=== PATIENT | female | born 1950 | race Caucasian/White ===

== ENCOUNTER 2021-07-13 12:18 | Observation (INO) | payer MEDICARE, SELFPAY ==
[2021-07-13] VITALS (10 sets, daily range): BP systolic 143–153; BP diastolic 60–83; PULSE 56–76; RESP 17–18; TEMP 36.6–37.3; O2SAT 87–96; BMI 23.3
--- NOTE | ~2021-07-13 | XR_ITS ---
EXAMINATION: XR CHEST CLINICAL INFORMATION: SOB COMPARISON: None TECHNIQUE: Frontal view of the chest was obtained. FINDINGS: The lungs are well-expanded with prominent pulmonary vascular markings with trace curly lines in the left lung base CP angle suspicious of mild congestion. Heart size and perivascular is normal. No gross bony abnormality seen. XR/XR chest 1V IMPRESSION: Suspect mild pulmonary vascular congestion.
--- NOTE | 2021-07-13 12:31 | PC.NURSE ---
patient a&ox3, non home o2 dependent, 2L O2 via ems, cardiac exercise physiologist applied, vss, pt awaiting provider, will continue to monitor.
--- NOTE | 2021-07-13 12:45 | ECG_ITS ---
Test Reason : DYSPENA Blood Pressure : / mmHG Vent. Rate : 061 BPM Atrial Rate : 061 BPM P-R Int : 174 ms QRS Dur : 090 ms QT Int : 426 ms P-R-T Axes : 038 009 008 degrees QTc Int : 428 ms Sinus rhythm with sinus arrhythmia with occasional Premature ventricular complexes Cannot rule out Anterior infarct , age undetermined - could be related to lead placement Abnormal ECG No previous ECGs available Referred By: Briana Dickey Electronically Signed By:ALEJANDRA DORADO
--- NOTE | 2021-07-13 12:47 | ED.SOB ---
HPI - SOB/Dyspnea General Chief Complaint: Dyspnea Stated Complaint: SOB,PROD COUGH,RECENT COVID NEG RESULT PER EMS Time Seen by Provider: 07/13/21 12:44 Source: patient and EMS Mode of arrival: ambulatory Limitations: no limitations History of Present Illness HPI Narrative: 70-year-old female came in for evaluation of shortness of breath, productive cough. Symptoms started few days ago with productive cough with yellow sputum, with increased wheezing, chest tightness. Patient did not take vaccination for COVID but declined any exposure to sick contact or recent travel. Patient declined chest pain with her symptoms, no fever chills. Related Data Previous Rx's Medication Instructions Recorded albuterol sulfate 90 mcg/actuation 1 inh INHALATION QID PRN #8.5 g 07/13/21 aerosol inhaler (ProAir HFA) azithromycin 250 mg tablet See Rx Instructions .ROUTE 07/13/21 (Zithromax Z-Josh) .COMPLEX #6 tab prednisone 5 mg tablet 5 mg PO BID #10 tab 07/13/21 Allergies Allergy/AdvReac Type Severity Reaction Status Date / Time No Known Allergies Allergy Verified 07/13/21 12:26 Review of Systems Review of Systems: All other systems are reviewed and are negative Constitutional: Reports as per HPI and Reports no additional constitutional complaints Eyes: Reports as per HPI and Reports no additional eye complaints Reports system reviewed and no additional complaints, except as documented Cardiovascular: Reports as per HPI and Reports no additional cardiovascular complaints Respiratory: Reports as per HPI and Reports no additional respiratory complaints Gastrointestinal: Reports as per HPI and Reports no additional gastrointestinal complaints Genitourinary: Reports no additional female genitourinary complaints Musculoskeletal: Reports no additional musculoskeletal complaints Skin/Breast: Reports system reviewed and no additional complaints, except as docu Psychiatric: Reports no additional psychiatric complaints Endocrine: Reports no additional endocrine complaints Hematologic/Lymphatic: Reports no additional hematologic/lymphatic complaints Allergic/Immunologic: Reports no additional allergic/immunologic complaints Reports system reviewed and no additional complaints, except as documented and Reports Abnormal speech present [facility] Past Medical History Medical History (Updated 07/13/21 @ 15:19 by Briana Dickey MD) Asthma Heart disease Social History Social History Alcohol intake: current Alcohol intake frequency: holidays/special occasions only Alcohol type: beer Patient Tobacco Use Status: Never used Tobacco Use of substances other than those prescribed or required for medical reasons: No Advance Directives: Yes Advance Directives Information Provided: No Advance Directives on File: No Physical Exam Vital Signs: Vital Signs: Last Vital Signs Temp 99.2 F 07/13/21 14:30 Pulse 56 07/13/21 14:30 Resp 17 07/13/21 14:30 BP 143/72 H 07/13/21 14:30 Pulse Ox 95 07/13/21 14:30 Oxygen Flow Rate 2 07/13/21 12:26 BMI result Body Mass Index 23.3 Vital signs have been reviewed as appeared to be correct. Blood pressure normal. Heart rate normal. Respiration rate normal. Temperature normal. Oxygen saturation normal. Appearance: Alert. Oriented X3. No acute distress. Head: Normal external exam. Normocephalic. Atraumatic. No Lenz signs noted. No raccoon eyes noted Eyes: PERRLA. EOMI. Conjunctiva and sclera normal. Eyelids normal. ENT: TM's Normal. Pharynx normal. Uvula midline. Moist mucous membranes. No trismus noted. No drooling noted. No muffled voice noted. Neck: Normal inspection. Neck supple. FROM. No adenopathy. Thyroid Normal. No meningeal signs. No neck mass noted. CVS: Normal heart rate and rhythm. Heart sound normal. No murmurs noted. Pulses normal throughout. Respiratory: No respiratory distress. Painless inspiration. Breath sounds normal. Diffuse expiratory wheezing with prolonged with expiration. Chest nontender. No accessory muscle usage noted or decreased air movement noted. Abdomen: Soft and nontender. Bowel sounds normal in all 4 quadrants. No distention noted. No organomegaly noted. No visible injury noted. Back: No CVA tenderness. Full range of motion noted. Skin: Skin warm and dry. Normal skin color. Normal skin turgor. No rashes/lesions/lacerations noted. Extremities: No lower extremity edema. Extremities exhibit normal range of motion. Extremities nontender. Neuro: Oriented X 3. Cranial nerve exam: II-XII are grossly intact No motor deficit. No sensory deficit. Reflexes normal. Course Course Course Narrative: Assessment and plan. 70-year-old female history of bronchial asthma, came in for persistent cough with yellow sputum, patient is positive for RSV, elevated troponin, unremarkable EKG. 1. Start the patient on Z-Josh/bronchodilator/prednisone for 5 days. 2. Repeat troponin in 3 hours if there is no delta change patient can be discharged, signed out to Dr. Broussard to check 2nd troponin. MDM - SOB/Dyspnea Lab Data Attestation: I reviewed the patient's lab results. Result diagrams: 07/13/21 13:17 07/13/21 13:17 Labs: Lab Results 07/13/21 07/13/21 07/13/21 Range/Units 13:17 13:17 13:17 WBC 3.9 L (4.8-10.8) X10*3/uL RBC 3.33 L (4.20-5.50) X10*6/uL Hgb 10.6 L (12.0-16.0) g/dl Hct 31.6 L (37.0-47.0) % MCV 94.9 (80.0-98.0) fL MCH 31.8 (27.0-33.0) pg MCHC 33.5 (31.0-35.0) g/dl RDW 12.5 (11.0-16.0) % Plt Count 171 (160-400) X10*3/uL MPV 10.2 (9.4-12.3) fL Immature Gran % (Auto) 0.0 (0.0-0.4) % Neut % (Auto) 49.5 (45-73) % Lymph % (Auto) 37.0 (20-40) % [place] % (Auto) 7.8 (2-11) % Eos % (Auto) 4.9 H (0-4) % Baso % (Auto) 0.8 (0-2) % Lymph # (Auto) 1.4 (1.2-4.9) X10*3/uL [place] # (Auto) 0.3 (0.1-1.2) X10*3/uL Eos # (Auto) 0.2 (0.0-0.4) X10*3/uL Baso # (Auto) 0.0 (0.0-0.2) X10*3/uL Abs Immat Gran (auto) 0.00 (0.00-0.03) X10*3/uL Absolute Neuts (auto) 1.9 L (2.0-8.3) x10*3/uL Absolute Nucleated RBC 0.000 (0.0-0.012) X10*3/uL Nucleated RBC % (auto) 0.0 (0.0-0.2) /100WBC Sodium 140 (135-145) mmol/L Potassium 4.0 (3.3-5.1) mmol/L Chloride 109 H (96-108) mmol/L Carbon Dioxide 24 (22-29) mmol/L Anion Gap 11 L (12-20) BUN 12 (9-16) mg/dL Creatinine 0.73 (0.5-1.4) mg/dL Estim Creat Clear Calc 66.1 Estimated GFR > 60 Random Glucose 94 (60-115) mg/dL Calcium 8.8 (8.4-10.2) mg/dL Total Bilirubin 0.4 (0.0-1.0) mg/dL Direct Bilirubin 0.2 (0.0-0.5) mg/dL AST 20 (5-31) U/L ALT 14 (0-31) U/L Alkaline Phosphatase 54 (39-117) U/L Troponin I High Sens 31.5 H (<3.5-17.0) ng/L B-Natriuretic Peptide (<100) pg/mL Total Protein 5.8 L (6.5-8.0) g/dL Albumin 3.7 (3.5-5.0) g/dL Lipase 17 (8-78) U/L Influenza Type A (PCR) (Negative) Influenza Type B (PCR) (Negative) RSV RNA Qual (PCR) (Negative) SARS-CoV-2 RNA (RT-PCR) (Negative) 07/13/21 07/13/21 Range/Units 13:17 13:17 WBC (4.8-10.8) X10*3/uL RBC (4.20-5.50) X10*6/uL Hgb (12.0-16.0) g/dl Hct (37.0-47.0) % MCV (80.0-98.0) fL MCH (27.0-33.0) pg MCHC (31.0-35.0) g/dl RDW (11.0-16.0) % Plt Count (160-400) X10*3/uL MPV (9.4-12.3) fL Immature Gran % (Auto) (0.0-0.4) % Neut % (Auto) (45-73) % Lymph % (Auto) (20-40) % [place] % (Auto) (2-11) % Eos % (Auto) (0-4) % Baso % (Auto) (0-2) % Lymph # (Auto) (1.2-4.9) X10*3/uL [place] # (Auto) (0.1-1.2) X10*3/uL Eos # (Auto) (0.0-0.4) X10*3/uL Baso # (Auto) (0.0-0.2) X10*3/uL Abs Immat Gran (auto) (0.00-0.03) X10*3/uL Absolute Neuts (auto) (2.0-8.3) x10*3/uL Absolute Nucleated RBC (0.0-0.012) X10*3/uL Nucleated RBC % (auto) (0.0-0.2) /100WBC Sodium (135-145) mmol/L Potassium (3.3-5.1) mmol/L Chloride (96-108) mmol/L Carbon Dioxide (22-29) mmol/L Anion Gap (12-20) BUN (9-16) mg/dL Creatinine (0.5-1.4) mg/dL Estim Creat Clear Calc Estimated GFR Random Glucose (60-115) mg/dL Calcium (8.4-10.2) mg/dL Total Bilirubin (0.0-1.0) mg/dL Direct Bilirubin (0.0-0.5) mg/dL AST (5-31) U/L ALT (0-31) U/L Alkaline Phosphatase (39-117) U/L Troponin I High Sens (<3.5-17.0) ng/L B-Natriuretic Peptide 105 H (<100) pg/mL Total Protein (6.5-8.0) g/dL Albumin (3.5-5.0) g/dL Lipase (8-78) U/L Influenza Type A (PCR) NEGATIVE (Negative) Influenza Type B (PCR) NEGATIVE (Negative) RSV RNA Qual (PCR) POSITIVE A (Negative) SARS-CoV-2 RNA (RT-PCR) NEGATIVE (Negative) Imaging Data Chest x-ray: Radiologist's impression: Suspect mild pulmonary vascular congestion. ? ECG Data Attestation: I personally reviewed and interpreted this ECG as follows: Interpretation: Normal sinus rhythm at 61 beats per minutes, occasional PVCs, nonspecific ST-T changes. Discharge Plan Discharge Clinical Impression: Asthma with exacerbation, Respiratory syncytial virus (RSV) Patient Disposition: Still a Patient Instructions: Respiratory Syncytial Virus (ED) Prescriptions: New prednisone 5 mg tablet 5 mg PO BID Qty: 10 RF: 0 albuterol sulfate [ProAir HFA] 90 mcg/actuation HFA aerosol inhaler 1 inh inhalation QID PRN (Reason: shortness of breath or wheezing) Qty: 8.5 RF: 0 azithromycin [Zithromax Z-Josh] 250 mg tablet See Rx Instructions .ROUTE .COMPLEX Qty: 6 RF: 0 Referrals: Luly Cruz MD [Primary Care Provider] - 2 days
[2021-07-13 13:29] LABS: MANUAL DIFF FLAG NO
[2021-07-13 13:30] LABS: Basophils Percent Auto 0.8 % (0-2); Eosinophils Absolute Auto 0.2 X10*3/uL (0.0-0.4); Eosinophils Percent Auto 4.9 % (0-4); Hematocrit 31.6 % (37.0-47.0); Hemoglobin 10.6 g/dl (12.0-16.0); Lymphocytes Absolute Auto 1.4 X10*3/uL (1.2-4.9); Mean Corpuscular HGB Conc 33.5 g/dl (31.0-35.0); Mean Corpuscular Hemoglobin 31.8 pg (27.0-33.0); Mean Corpuscular Volume 94.9 fL (80.0-98.0); Mean Platelet Volume 10.2 fL (9.4-12.3); Monocytes Absolute Auto 0.3 X10*3/uL (0.1-1.2); Monocytes Percent Auto 7.8 % (2-11); Neutrophils Absolute Auto 1.9 x10*3/uL (2.0-8.3); Neutrophils Percent Auto 49.5 % (45-73); Platelet Count 171 X10*3/uL (160-400); Red Blood Count 3.33 X10*6/uL (4.20-5.50); Red Cell Distribution Width 12.5 % (11.0-16.0); White Blood Count 3.9 X10*3/uL (4.8-10.8)
[2021-07-13] MEDS: guaiFEN/Codeine SF 200/20/10ML 10 ML LIQUID PO (13:37)
--- NOTE | 2021-07-13 13:38 | PC.NURSE ---
labs drawn, pt medicated per order
[2021-07-13 13:47] LABS: Alanine Aminotransferase 14 U/L (0-31); Albumin Level 3.7 g/dL (3.5-5.0); Alkaline Phosphatase 54 U/L (39-117); Anion Gap 11 (12-20); Aspartate Amino Transferase 20 U/L (5-31); Bilirubin Direct 0.2 mg/dL (0.0-0.5); Bilirubin Total 0.4 mg/dL (0.0-1.0); Blood Urea Nitrogen 12 mg/dL (9-16); Calcium 8.8 mg/dL (8.4-10.2); Carbon Dioxide 24 mmol/L (22-29); Chloride 109 mmol/L (96-108); Creatinine Clr Calc Pharmacy 66.1; Estimated Glomerular Filt Rate > 60; Glucose Random 94 mg/dL (60-115); Lipase 17 U/L (8-78); Sodium 140 mmol/L (135-145); Total Protein 5.8 g/dL (6.5-8.0)
[2021-07-13 13:51] LABS: B Type Natriuretic Peptide 105 pg/mL (<100)
[2021-07-13 13:52] LABS: Troponin-I High Sensitivity 31.5 ng/L (<3.5-17.0)
[2021-07-13 14:44] LABS: Influenza A PCR NEGATIVE (Negative); Influenza B PCR NEGATIVE (Negative); Resp Syncy Virus RNA Qual PCR POSITIVE (Negative); SARS COV2 PCR INHOUSE NEGATIVE (Negative)
[2021-07-13] MEDS: methylPREDNISolone Sod Succ 125 MG/2 ML VIAL IVPUSH (14:48)
--- NOTE | 2021-07-13 14:49 | PC.NURSE ---
patient a&ox3, pt was unable to swallow po meds, provider notified and ivp medication was ordered, pt was then medicated per order, vss, family at bedside, will continue to monitor.
[2021-07-13] MEDS: Albuterol/Iprat 2.5/0.5MG 3 ML AMPUL.NEB INHALE ×3 (15:09→22:44)
[2021-07-13] MEDS: Albuterol Sulfate (0.083%) 2.5 MG/3 ML VIAL.NEB 5 MG INHALE (15:09)
--- NOTE | 2021-07-13 16:31 | PC.NURSE ---
patient a&ox3, no c/o pain or discomfort, pt sinus raine with pvcs on division leader- vitals otherwise stable, will continue to monitor.
[2021-07-13 17:19] LABS: Troponin-I High Sensitivity 53.4 ng/L (<3.5-17.0)
--- NOTE | 2021-07-13 18:13 | PC.NURSE ---
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
--- NOTE | 2021-07-13 18:35 | PC.NURSE ---
per provider request, patient was taken off O2 NC, patients O2 sat decreased to 87% without ambulation/movement, provider was notified, O2 reapplied and patient recovered to mid 90s, repeat ekg performed, will continue to monitor.
--- NOTE | 2021-07-13 18:37 | ECG_ITS ---
Test Reason : REPEAT Blood Pressure : / mmHG Vent. Rate : 059 BPM Atrial Rate : 059 BPM P-R Int : 170 ms QRS Dur : 088 ms QT Int : 456 ms P-R-T Axes : 020 -08 -09 degrees QTc Int : 451 ms Sinus bradycardia Nonspecific ST and T wave abnormality Abnormal ECG When compared with ECG of 13-JUL-2021 13:06, Premature ventricular complexes are no longer Present Referred By: Dawson Duron Electronically Signed By:ALEJANDRA DORADO
--- NOTE | 2021-07-13 18:49 | PHA.MEDREC ---
Pharmacy Consult ? Medication Reconciliation Pharmacy has completed the medication reconciliation. Patient was sent from an urgent care where she was prescribed azithromycin, prednisone, and proair. The patient only consistently fills carvedilol and combivent.
--- NOTE | 2021-07-13 18:56 | P.HPHOSP_ITS ---
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 She came to the hospital because of having your discharge and also short of b reath. Patient having to 3Day is history of shortness of breath and wheezing, yellow sputum, also notice your discharge from the left side yesterday night. She denies any runny nose or body aches or any sick contacts at home. In addition as per ED patient's saturation dropped to 87% upon walking. Denies any new complaint of chest pain or abdominal pain or fever or chills or nausea or vomiting Denies any cough Denies any weakness or numbness. Review of Systems Review of Systems: As above. Yes all other systems are reviewed and are negative [facility] Medical History Asthma Heart disease Pertinent family history: sister has copd. Social History Alcohol intake: current Alcohol intake frequency: holidays/special occasions only Alcohol type: beer Patient Tobacco Use Status: Never used Tobacco Use of substances other than those prescribed or required for medical reasons: No Advance Directives: Yes Advance Directives Information Provided: No Advance Directives on File: No Meds Allergies Allergy/AdvReac Type Severity Reaction Status Date / Time No Known Allergies Allergy Verified 07/13/21 12:26 Active Medications: Current Medications Albuterol/Ipratropium (Albuterol/Iprat 2.5/0.5mg 3 Ml Ampul.Neb) 3 ml INHALE Q4H [facility] Albuterol/Ipratropium (Albuterol/Iprat 2.5/0.5mg 3 Ml Ampul.Neb) 3 ml INHALE Q3H PRN PRN Reason: Shortness of Breath Aspirin (Aspirin Enteric Coated 81 Mg Tablet.Dr) 162 mg PO DAILY [facility] Guaifenesin (Guaifenesin 100 Mg/5 Ml Liquid) 5 ml PO Q6H [facility] Ceftriaxone Sodium 1 gm/ (Sodium Chloride) 50 mls @ 100 mls/hr IV ONCE ONE Stop: 07/13/21 19:19 Loratadine (Loratadine 10 Mg Tablet) 10 mg PO DAILY [facility] Methylprednisolone Sodium Succinate (Methylprednisolone Sod Succ 40 Mg/Ml Vial) 40 mg IVPUSH BID [facility] Pharmacy Consult (Consult Rx Perform Med Rec) 1 each MISCELLANE ONCE PRN PRN Reason: Consult order Sodium Chloride (0.9 % Sodium Chloride Flush 3 Ml Syringe) 3 ml IVFLUSH QSHIFT [facility] Home Medications Medication Instructions Recorded Confirmed Last Taken Type carvedilol 3.125 mg tablet 1 tab PO BID 07/13/21 07/13/21 Unknown History ipratropium 20 mcg-albuterol 100 1 puff INHALATION QID 07/13/21 07/13/21 Unknown History mcg/actuation mist for inhalation (Combivent Respimat) Physical Exam Vital Signs and Narrative: Vital Signs: Last Vital Signs Temp 98.1 F 07/13/21 18:00 Pulse 62 07/13/21 18:00 Resp 18 07/13/21 18:00 BP 147/70 H 07/13/21 18:00 Pulse Ox 96 07/13/21 18:34 Oxygen Flow Rate 2 07/13/21 12:26 BMI result Body Mass Index 23.3 physical exam : Appearance: Alert.? Oriented X3.? not in distress.? Eyes: Pupils equal, round and reactive to light.? Sclera nonicteric.? ENT: Pharynx normal.? Moist mucous membranes. ear: right ear: has vax -not clear visible ear drum left ear: eardrum perforation has erythema around the remaining eardrum. No visible discharge. cvs: rrr, [id number] , no murmur res: clear to auscultation ,no rhonchii or wheezing abd: no rebound or guarding ,nt, bs present. ext pulses present , no cyanosis ,Gait well balanced well coordinated. neuro: axo3 , nonfocal. Results Labs CBC and Chem 7: 07/13/21 13:17 07/13/21 13:17 Labs: Laboratory Results - last 24 hr 07/13/21 07/13/21 07/13/21 13:17 13:17 13:17 MCV 94.9 MCH 31.8 MCHC 33.5 RDW 12.5 Plt Count 171 MPV 10.2 Immature Gran % (Auto) 0.0 Neut % (Auto) 49.5 Lymph % (Auto) 37.0 [place] % (Auto) 7.8 Eos % (Auto) 4.9 H Baso % (Auto) 0.8 Lymph # (Auto) 1.4 [place] # (Auto) 0.3 Eos # (Auto) 0.2 Baso # (Auto) 0.0 Abs Immat Gran (auto) 0.00 Absolute Neuts (auto) 1.9 L Absolute Nucleated RBC 0.000 Nucleated RBC % (auto) 0.0 Anion Gap 11 L Estim Creat Clear Calc 66.1 Estimated GFR > 60 Random Glucose 94 Calcium 8.8 Total Bilirubin 0.4 Direct Bilirubin 0.2 AST 20 ALT 14 Alkaline Phosphatase 54 Troponin I High Sens 31.5 H B-Natriuretic Peptide Total Protein 5.8 L Albumin 3.7 Lipase 17 Influenza Type A (PCR) Influenza Type B (PCR) RSV RNA Qual (PCR) SARS-CoV-2 RNA (RT-PCR) 07/13/21 07/13/21 07/13/21 13:17 13:17 16:46 MCV MCH MCHC RDW Plt Count MPV Immature Gran % (Auto) Neut % (Auto) Lymph % (Auto) [place] % (Auto) Eos % (Auto) Baso % (Auto) Lymph # (Auto) [place] # (Auto) Eos # (Auto) Baso # (Auto) Abs Immat Gran (auto) Absolute Neuts (auto) Absolute Nucleated RBC Nucleated RBC % (auto) Anion Gap Estim Creat Clear Calc Estimated GFR Random Glucose Calcium Total Bilirubin Direct Bilirubin AST ALT Alkaline Phosphatase Troponin I High Sens 53.4 H* D B-Natriuretic Peptide 105 H Total Protein Albumin Lipase Influenza Type A (PCR) NEGATIVE Influenza Type B (PCR) NEGATIVE RSV RNA Qual (PCR) POSITIVE A SARS-CoV-2 RNA (RT-PCR) NEGATIVE Imaging Radiologist's Impressions: Impressions Chest X-Ray 07/13/21 13:42 IMPRESSION: Suspect mild pulmonary vascular congestion. Assessment and Plan (1) Asthma with exacerbation: Status: Acute (2) Respiratory syncytial virus (RSV): Status: Acute (3) Hypoxia: Status: Acute (4) Otitis media: Status: Acute 1. acute hypoxemic respiratory failure sec to asthma excerebation/rsv: continue nebs, steroids, oxygen 2. left ear drum perforation/otitis: will start patient on ceftriaxone. 3. DVT prophylaxis with subQ heparin. Med reconciliation still pending. Quality Stroke Does the patient have a stroke diagnosis?: No VTE Prior VTE?: No VTE Risk Level:: Medical - moderate - high VTE Device Contraindication: N/A - Device Ordered VTE Drug Contraindication: N/A - Med Ordered
[2021-07-13] MEDS: Aspirin Enteric Coated 81 MG TABLET.DR 162 MG PO (19:05)
[2021-07-13] MEDS: Loratadine 10 MG TABLET PO (19:06)
[2021-07-13] MEDS: guaiFENesin 100 MG/5 ML LIQUID PO (19:07)
[2021-07-13] MEDS: methylPREDNISolone Sod Succ 40 MG/ML VIAL IVPUSH (19:09)
[2021-07-13] MEDS: cefTRIAXone sodium 1 GM in 0.9 % Sodium Chloride 50 ML IV (19:12)
[2021-07-13 19:15] LABS: Procalcitonin 0.18 ng/mL
--- NOTE | 2021-07-13 22:58 | MHC.CM.PN ---
CM met with pt admitted to observation with a bed assignment pending. A&Ox3Shabbir CODY reviewed and signed per protocol 07/13/2021@2225. No HCP on file. HCP reviewed, completed and signed per protocol. Copies given and uploaded into [employer] and [facility]. HCP/daughter Maribel Baumann ([phone]). Pt lives with daughter. Uses no DME or services. Is independent. Pt is not vaccinated against Covid 19. D/C plan is home without services. Daughter will provide transportation home. CM to follow for d/c needs.
[2021-07-14] VITALS (14 sets, daily range): BP systolic 112–151; BP diastolic 60–93; PULSE 60–114; RESP 14–22; TEMP 36.7–37.1; O2SAT 94–98
[2021-07-14] MEDS: guaiFENesin 100 MG/5 ML LIQUID PO ×4 (00:50→18:01)
[2021-07-14] MEDS: Albuterol/Iprat 2.5/0.5MG 3 ML AMPUL.NEB INHALE ×5 (03:59→20:44)
--- NOTE | 2021-07-14 07:30 | CA_ITS ---
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 The calculated ejection fraction is 53% by biplane method. - E/E prime ratio is >15, consistent with elevated filling pressures. Evidence suggests grade I (mild) diastolic dysfunction. - The basal inferior and mid inferior segments are hypokinetic. - There is mild mitral valve regurgitation. Findings Left Ventricle Normal left ventricular cavity size. There is mildly increased left ventricular wall thickness. The left ventricular systolic function is low normal. The calculated ejection fraction is 53% by biplane method. There is no evidence of regional wall motion abnormalities. E/E prime ratio is >15, consistent with elevated filling pressures. Evidence suggests grade I (mild) diastolic dysfunction. Wall Motion Rest Echo Findings The basal inferior and mid inferior segments are hypokinetic. Right Ventricle Normal right ventricular cavity size and systolic function. Atria The left atrium is moderately dilated. The right atrium is normal in size. Aortic Valve There is a normal trileaflet aortic valve. There is no aortic valve stenosis. There is no aortic valve regurgitation. Mitral Valve There is mild anterior and posterior mitral leaflet thickening. There is mild mitral annular calcification. There is mild mitral valve regurgitation. There is no mitral valve stenosis. Pulmonic Valve The pulmonic valve was not well visualized. Tricuspid Valve There is trace tricuspid valve regurgitation. The pulmonary artery systolic pressure is normal. Great Vessels The aortic annulus, sinuses of valsalva, and asc aorta are normal in size. Venous The inferior vena cava is normal in size and collapses greater than 50% with inspiration. Pericardium/Pleural There is no evidence of pericardial effusion. Prior Study Comparison Changes noted compared to prior study dated: 01/13/2001. see comments on wall motion; mitral regurgitation improved from before. Measurements 2D Linear Measurements IVSd: 1.09 0.6-0.9/0.6-1.0 cm LVIDd: 5.41 3.9-5.3/4.2-5.9 cm LVIDd Index: 3.11 2.4-3.2/2.2-3.1 cm/m2 LVIDs: 3.71 2.0-3.6 cm LVPWd: 1.03 0.7-1.1 cm Ao Root: 2.90 2.1-3.5 cm LA Diam: 3.90 2.7-3.8/3.0-4.0 cm LAIDs Index: 2.24 1.5-2.3 cm/m2 LV Mass: 279.36 67-162/88-224 g LV Mass Index: 160.55 43-95/49-115 g/m2 LVOT Diam: 2.10 3.0+(-)1.3 cm 2D Systolic Function EF 4C: 54.40 >55% EF 2C: 53.90 >55% EF BiP: 53.30 >55% Mitral Valve MV VTI: 0.32 MV Pk Harrison: 1.29 MV Mn Harrison: 0.66 MV Pk Grad: 7.00 MV Mn Grad: 2.00 MV Pk E: 0.77 MV PK A: 1.23 MV Decel Time: 131.00 E/A: 0.60 E'Lateral: 9.25 E'Medial: 3.92 E/E' Med: 19.70 E/E' Lat: 8.30 PHT: 38.00 MVA PHT: 5.79 MVA Continuity: 2.60 Decel [place]: 5.89 Aortic Valve AoV Pk Harrison: 1.59 AoV Mn Harrison: 1.02 AoV VTI: 0.35 AoV Pk Grad: 10.00 Aov Mn Grad: 5.00 DAVID Cont.VTI: 2.34 LVOT LVOT Pk Harrison: 1.01 LVOT Mn Harrsion: 0.71 LVOT VTI: 0.24 LVOT Pk Grad: 4.00 LVOT Mn Grad: 2.00 LVOT Diam: 2.10 LVOT Area: 3.46 Diastolic Function MV Pk E: 0.77 MV Pk A: 1.23 E/A: 0.60 E'Medial: 3.92 E/E' Med: 19.70 E' Laterial: 9.25 E/E' Lat: 8.30 Right Ventricle TAPSE (mm): 33.00 TVS' Harrison: 12.00 Tricuspid Valve TR Pk Harrison: 2.27 TR Pk Grad: 21.00 RA Press: 3.00 RVSP: 24.00 Great Vessels Aorta Ao Root-2D: 2.90 2.0-3.7 cm Ao Asc: 3.00 2.1-3.4 cm Pulmonary Valve PV Pk Harrison: 1.18 Peak PV Grad: 6.00 Updated in Other Vendor System with Status of Final Rodrigo Fernandes MD electronically signed on 07/14/2021 1:37:09 PM with status of Final
--- NOTE | 2021-07-14 07:57 | HO.PM.IMPN ---
Subjective Subjective Date of Service: 07/15/21 Interval History: asthma excerebation, left ottis media with ear drum peroforation Review of Systems shortness of breath seems to be improving , does not have ear pain or any discharge overnight. Physical Exam Vital Signs: Vital Signs: Last Vital Signs Temp 98.8 F 07/14/21 07:11 Pulse 78 07/14/21 07:49 Resp 19 07/14/21 07:13 BP 151/93 H 07/14/21 07:13 Pulse Ox 98 07/14/21 07:13 Oxygen Flow Rate 2 07/13/21 12:26 BMI result Body Mass Index 23.3 Appearance: Alert.? Oriented X3.? not in distress.? ear:right ear: has vax -not clear visible ear drum left ear: eardrum perforation has erythema around the remaining eardrum. ? No visible discharge. cvs: rrr, [id number] , no murmur res: clear to auscultation ,no rhonchii or wheezing abd: no rebound or guarding ,nt, bs present. ext pulses present , no cyanosis ,Gait well balanced well coordinated. neuro: axo3 , nonfocal. Objective Data Active Medications Albuterol/Ipratropium (Albuterol/Iprat 2.5/0.5mg 3 Ml Ampul.Neb) 3 ml INHALE Q4H [facility] Last Admin: 07/14/21 07:48 Dose: 3 ml Documented by: MELITON Albuterol/Ipratropium (Albuterol/Iprat 2.5/0.5mg 3 Ml Ampul.Neb) 3 ml INHALE Q3H PRN PRN Reason: Shortness of Breath Aspirin (Aspirin Enteric Coated 81 Mg Tablet.) 162 mg PO DAILY [facility] Last Admin: 07/13/21 19:05 Dose: 162 mg Documented by: VANDANA Guaifenesin (Guaifenesin 100 Mg/5 Ml Liquid) 5 ml PO Q6H [facility] Last Admin: 07/14/21 00:50 Dose: 5 ml Documented by: VANDANA Ceftriaxone Sodium 1 gm/ (Sodium Chloride) 50 mls @ 100 mls/hr IV Q24H [facility] Loratadine (Loratadine 10 Mg Tablet) 10 mg PO DAILY [facility] Last Admin: 12/02/21 19:06 Dose: 10 mg Documented by: VANDANA Methylprednisolone Sodium Succinate (Methylprednisolone Sod Succ 40 Mg/Ml Vial) 40 mg IVPUSH BID [facility] Last Admin: 07/13/21 19:09 Dose: 40 mg Documented by: VANDANA Pharmacy Consult (Consult Rx Perform Med Rec) 1 each MISCELLANE ONCE PRN PRN Reason: Consult order Sodium Chloride (0.9 % Sodium Chloride Flush 3 Ml Syringe) 3 ml IVFLUSH QSHIFT [facility] Last Admin: 07/14/21 00:20 Dose: Not Given Documented by: VANDANA Non-Admin Reason: IV Running Labs CBC & Chem 7: 07/13/21 13:17 07/13/21 13:17 Labs: Laboratory Results - last 24 hr 07/13/21 07/13/21 07/13/21 13:17 13:17 13:17 MCV 94.9 MCH 31.8 MCHC 33.5 RDW 12.5 Plt Count 171 MPV 10.2 Immature Gran % (Auto) 0.0 Neut % (Auto) 49.5 Lymph % (Auto) 37.0 [place] % (Auto) 7.8 Eos % (Auto) 4.9 H Baso % (Auto) 0.8 Lymph # (Auto) 1.4 [place] # (Auto) 0.3 Eos # (Auto) 0.2 Baso # (Auto) 0.0 Abs Immat Gran (auto) 0.00 Absolute Neuts (auto) 1.9 L Absolute Nucleated RBC 0.000 Nucleated RBC % (auto) 0.0 Anion Gap 11 L Estim Creat Clear Calc 66.1 Estimated GFR > 60 Random Glucose 94 Calcium 8.8 Total Bilirubin 0.4 Direct Bilirubin 0.2 AST 20 ALT 14 Alkaline Phosphatase 54 Troponin I High Sens 31.5 H B-Natriuretic Peptide Total Protein 5.8 L Albumin 3.7 Lipase 17 Procalcitonin Influenza Type A (PCR) Influenza Type B (PCR) RSV RNA Qual (PCR) SARS-CoV-2 RNA (RT-PCR) 07/13/21 07/13/21 07/13/21 13:17 13:17 13:17 MCV MCH MCHC RDW Plt Count MPV Immature Gran % (Auto) Neut % (Auto) Lymph % (Auto) [place] % (Auto) Eos % (Auto) Baso % (Auto) Lymph # (Auto) [place] # (Auto) Eos # (Auto) Baso # (Auto) Abs Immat Gran (auto) Absolute Neuts (auto) Absolute Nucleated RBC Nucleated RBC % (auto) Anion Gap Estim Creat Clear Calc Estimated GFR Random Glucose Calcium Total Bilirubin Direct Bilirubin AST ALT Alkaline Phosphatase Troponin I High Sens B-Natriuretic Peptide 105 H Total Protein Albumin Lipase Procalcitonin 0.18 Influenza Type A (PCR) NEGATIVE Influenza Type B (PCR) NEGATIVE RSV RNA Qual (PCR) POSITIVE A SARS-CoV-2 RNA (RT-PCR) NEGATIVE 07/13/21 16:46 MCV MCH MCHC RDW Plt Count MPV Immature Gran % (Auto) Neut % (Auto) Lymph % (Auto) [place] % (Auto) Eos % (Auto) Baso % (Auto) Lymph # (Auto) [place] # (Auto) Eos # (Auto) Baso # (Auto) Abs Immat Gran (auto) Absolute Neuts (auto) Absolute Nucleated RBC Nucleated RBC % (auto) Anion Gap Estim Creat Clear Calc Estimated GFR Random Glucose Calcium Total Bilirubin Direct Bilirubin AST ALT Alkaline Phosphatase Troponin I High Sens 53.4 H* D B-Natriuretic Peptide Total Protein Albumin Lipase Procalcitonin Influenza Type A (PCR) Influenza Type B (PCR) RSV RNA Qual (PCR) SARS-CoV-2 RNA (RT-PCR) Assessment and Plan (1) Otitis media: Status: Acute (2) Asthma with exacerbation: Status: Acute (3) Respiratory syncytial virus (RSV): Status: Acute Assessment and Plan: 1. acute hypoxemic respiratory failure sec to asthma excerebation/rsv: ?continue nebs, steroids, oxygen 2. left ear drum? perforation/otitis: will start patient on ceftriaxone. d/w ent -will continue ceftriaxone . 3. eleavted trops:? demanad related echo pending continue asa, bb, lipid panel in am. 3.? DVT prophylaxis with? subQ heparin. ? Quality Stroke Does the patient have a stroke diagnosis?: No VTE Prior VTE?: No VTE Risk Level:: Medical - moderate - high VTE Device Contraindication: N/A - Device Ordered VTE Drug Contraindication: N/A - Med Ordered
--- NOTE | 2021-07-14 08:12 | PC.NURSE ---
update to daughter, chelly on phone. will come later. pt sitting up eating breakfast.
[2021-07-14] MEDS: Loratadine 10 MG TABLET PO (08:44)
[2021-07-14] MEDS: methylPREDNISolone Sod Succ 40 MG/ML VIAL IVPUSH ×2 (08:44→21:53)
[2021-07-14] MEDS: Aspirin Enteric Coated 81 MG TABLET.DR 162 MG PO (08:44)
--- NOTE | 2021-07-14 08:49 | PC.NURSE ---
sitting up in bed. unlabored resp. reports feeling better. skin pwd. nsr on monitor with occasional PVC. no cough noted by this rn. precaution sign at curtain. LS CTA.
--- NOTE | 2021-07-14 09:42 | ECG_ITS ---
Test Reason : SOB Blood Pressure : / mmHG Vent. Rate : 078 BPM Atrial Rate : 078 BPM P-R Int : 178 ms QRS Dur : 084 ms QT Int : 386 ms P-R-T Axes : 028 -02 008 degrees QTc Int : 440 ms Normal sinus rhythm Nonspecific ST and T wave abnormality Abnormal ECG When compared with ECG of 13-JUL-2021 18:37, No significant change was found Referred By: Briana Dickey Electronically Signed By:ALEJANDRA DORADO
[2021-07-14] MEDS: carvediloL 3.125 MG TABLET PO ×2 (14:30→21:54)
--- NOTE | 2021-07-14 16:06 | PC.NURSE ---
rn to rn with cristal on IMC.
[2021-07-14] MEDS: cefTRIAXone sodium 1 GM in 0.9 % Sodium Chloride 50 ML IV (18:02)
[2021-07-14] MEDS: 0.9 % Sodium Chloride Flush 3 ML SYRINGE IVFLUSH (21:56)
[2021-07-15] VITALS: BP 144/72; PULSE 64; RESP 18; TEMP 36.5; O2SAT 95
[2021-07-15] MEDS: guaiFENesin 100 MG/5 ML LIQUID PO ×3 (00:09→13:16)
[2021-07-15 04:00] VITALS: BP 145/72; PULSE 54; RESP 18; TEMP 36.1; O2SAT 95
[2021-07-15 05:38] VITALS: BMI 23.3
[2021-07-15 07:31] VITALS: BP 140/70; PULSE 60; RESP 18; TEMP 36.4; O2SAT 98
[2021-07-15 09:13] VITALS: BP 140/70; PULSE 60
[2021-07-15] MEDS: Aspirin Enteric Coated 81 MG TABLET.DR PO (09:13)
[2021-07-15] MEDS: Loratadine 10 MG TABLET PO (09:13)
[2021-07-15] MEDS: carvediloL 3.125 MG TABLET PO (09:13)
[2021-07-15] MEDS: predniSONE 20 MG TABLET 40 MG PO (09:14)
[2021-07-15] MEDS: 0.9 % Sodium Chloride Flush 3 ML SYRINGE IVFLUSH (09:14)
--- NOTE | 2021-07-15 10:11 | PM.DS ---
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 ? She came to the hospital because of having your discharge and also short of breath. ? Patient having to 3Day is history of shortness of breath and wheezing,? yellow sputum, also notice your discharge from the left side yesterday night. ? She denies any runny nose or body aches or any sick contacts at home. ? In addition as per ED patient's saturation dropped to 87% upon walking. ?? Denies any new complaint of chest pain or abdominal pain or fever or chills or nausea or vomiting Denies any cough Denies any weakness or numbness. hospital course:patient came to the hospital because of acute hypoxemic respiratory failure secondary to asthma/ viral URI, also has left side otitis media and eardrum perforation: patient was started on nebulizers, steroids, oxygen and antibiotics seems to be improving: upon discharge switched to p.o. steroids and antibiotics p.o. As per daughter patient has perforated eardrum history and has discharge when the season changes: And she gets on and off antibiotic for that. in addition patient was found to have elevated troponin: Echo shows mild wall motion abnormalities, cardiology saw the patient patient is asymptomatic currently: Recommended outpatient cardiac workup including stress test. as per the daughter patient had recent Holter monitoring possible and stress test in january: Patient daughter wants to her to be follow-up at [facility]. They will make their own appointment. patient was started on aspirin and she is already on beta-mame, Added statin. Above management discussed with the patient in detail length she understand and in agreement with the above plan, time spent 50 minutes and 50% time spent on counseling. Significant findings: As above. Procedures performed: None. Treatment and response: As above. Complications: None. Time Spent with Patient Time attestation: Total time spent providing and/or coordinating discharge services: Discharge coordination time: Greater than 30 minutes Quality: Stroke Does the patient have a stroke diagnosis?: No Physical Exam Vital Signs: Vital Signs: Last Vital Signs Temp 97.6 F 07/15/21 07:31 Pulse 60 07/15/21 09:13 Resp 18 07/15/21 07:31 BP 140/70 H 07/15/21 09:13 Pulse Ox 98 07/15/21 07:31 Oxygen Flow Rate 2 07/13/21 12:26 BMI result Body Mass Index 23.3 ?Appearance: Alert.? Oriented X3.? not in distress.? Eyes: Pupils equal, round and reactive to light.? Sclera nonicteric.? ENT: Pharynx normal.? Moist mucous membranes. ear: right ear: has vax -not clear visible ear drum left ear: eardrum perforation, No visible discharge. has erythema around the eardrum improving. cvs: rrr, [id number] , no murmur res: clear to auscultation ,no rhonchii or wheezing abd: no rebound or guarding ,nt, bs present. ext pulses present , no cyanosis ,Gait well balanced well coordinated. neuro: axo3 , nonfocal. DS: Data Additional Comments Additional comments: 07/13/21 13:17? 07/13/21 13:17? Labs: Laboratory Results - last 24 hr ? 07/13/21 07/13/21 07/13/21 ? 13:17 13:17 13:17 MCV ?94.9 ? ? MCH ?31.8 ? ? MCHC ?33.5 ? ? RDW ?12.5 ? ? Plt Count ?171 ? ? MPV ?10.2 ? ? Immature Gran % (Auto) ?0.0 ? ? Neut % (Auto) ?49.5 ? ? Lymph % (Auto) ?37.0 ? ? [place] % (Auto) ?7.8 ? ? Eos % (Auto) ?4.9 H ? ? Baso % (Auto) ?0.8 ? ? Lymph # (Auto) ?1.4 ? ? [place] # (Auto) ?0.3 ? ? Eos # (Auto) ?0.2 ? ? Baso # (Auto) ?0.0 ? ? Abs Immat Gran (auto) ?0.00 ? ? Absolute Neuts (auto) ?1.9 L ? ? Absolute Nucleated RBC ?0.000 ? ? Nucleated RBC % (auto) ?0.0 ? ? Anion Gap ? ?11 L ? Estim Creat Clear Calc ? ?66.1 ? Estimated GFR ? ?> 60 ? Random Glucose ? ?94 ? Calcium ? ?8.8 ? Total Bilirubin ? ?0.4 ? Direct Bilirubin ? ?0.2 ? AST ? ?20 ? ALT ? ?14 ? Alkaline Phosphatase ? ?54 ? Troponin I High Sens ? ? ?31.5 H B-Natriuretic Peptide ? ? ? Total Protein ? ?5.8 L ? Albumin ? ?3.7 ? Lipase ? ?17 ? Procalcitonin ? ? ? Influenza Type A (PCR) ? ? ? Influenza Type B (PCR) ? ? ? RSV RNA Qual (PCR) ? ? ? SARS-CoV-2 RNA (RT-PCR) ? 07/13/21 07/13/21 07/13/21 ? 13:17 13:17 13:17 MCV ? ? ? MCH ? ? ? MCHC ? ? ? RDW ? ? ? Plt Count ? ? ? MPV ? ? ? Immature Gran % (Auto) ? ? ? Neut % (Auto) ? ? ? Lymph % (Auto) ? ? ? [place] % (Auto) ? ? ? Eos % (Auto) ? ? ? Baso % (Auto) ? ? ? Lymph # (Auto) ? ? ? [place] # (Auto) ? ? ? Eos # (Auto) ? ? ? Baso # (Auto) ? ? ? Abs Immat Gran (auto) ? ? ? Absolute Neuts (auto) ? ? ? Absolute Nucleated RBC ? ? ? Nucleated RBC % (auto) ? ? ? Anion Gap ? ? ? Estim Creat Clear Calc ? ? ? Estimated GFR ? ? ? Random Glucose ? ? ? Calcium ? ? ? Total Bilirubin ? ? ? Direct Bilirubin ? ? ? AST ? ? ? ALT ? ? ? Alkaline Phosphatase ? ? ? Troponin I High Sens ? ? ? B-Natriuretic Peptide ?105 H ? ? Total Protein ? ? ? Albumin ? ? ? Lipase ? ? ? Procalcitonin ? ? ?0.18 Influenza Type A (PCR) ? ?NEGATIVE ? Influenza Type B (PCR) ? ?NEGATIVE ? RSV RNA Qual (PCR) ? ?POSITIVE A ? SARS-CoV-2 RNA (RT-PCR) ? ?NEGATIVE ? cxr: IMPRESSION: Suspect mild pulmonary vascular congestion. Discharge Plan Discharge Patient Disposition: Home, Self-Care Discharge Diagnosis: Acute hypoxemic respiratory failure secondary to asthma exacerbation/RSV, Referrals: Luly Cruz MD [Primary Care Provider] - 2 days Discharge Medications: New albuterol sulfate [ProAir HFA] 90 mcg/actuation HFA aerosol inhaler 1 inh inhalation QID PRN (Reason: shortness of breath or wheezing) Qty: 8.5 RF: 0 prednisone 20 mg Tablet 40 mg PO DAILY Qty: 4 RF: 0 guaifenesin 100 mg/5 mL Liquid 5 ml PO Q6H Qty: 80 RF: 0 amoxicillin-pot clavulanate [Augmentin] 875-125 mg tablet 1 tab PO BID Qty: 10 RF: 0 aspirin 81 mg Tablet,Delayed Release (Dr/Ec) 81 mg PO DAILY Qty: 30 RF: 0 atorvastatin 20 mg tablet 20 mg PO BEDTIME Qty: 30 RF: 0 Continued carvedilol 3.125 mg tablet 1 tab PO BID RF: 0 Combivent Respimat 20-100 mcg/actuation mist 1 puff inhalation QID RF: 0 Discharge Orders: Discharge Order (Routine); Ordered 07/15/21 Ordered By: Dawson Duron Diet: advance to usual diet Activity on Discharge: As tolerated Stand Alone Forms: Patient Portal Discharge page Care Plan Goals: patient came to the hospital because of acute hypoxemic respiratory failure secondary to asthma/ viral URI, also has left side otitis media and eardrum perforation: patient was started on nebulizers, steroids, oxygen and antibiotics seems to be improving: upon discharge switched to p.o. steroids and antibiotics p.o. in addition patient was found to have elevated troponin: Echo shows mild wall motion abnormalities, cardiology saw the patient patient is asymptomatic currently: Recommended outpatient cardiac workup including stress test. patient was started on aspirin and she is already on beta-mame. Health Concerns: As above. Plan of Treatment: As above. Assessment: As above. Patient Instructions: Respiratory Syncytial Virus (ED)
--- NOTE | 2021-07-15 10:13 | PM.CNCAR ---
History of Present Illness History of Present Illness Date of Service: 07/15/21 Chief complaint: Asthma exacerbation/rsv uri Narrative: This is a cardiology consultation regarding elevated troponins and abnormal echocardiogram. Patient is admitted with asthma exacerbation. 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 Admission is mainly for shortness of breath, wheezing, elevated sputum and some discharge from the left ear. In this setting, troponins were slightly elevated an echocardiogram had shown wall motion abnormality. Patient herself does not have any cardiac symptoms like angina. She states that she goes to a seismograph operator helper in [place] but she cannot recall the name. The reason is that she has an irregular heartbeat but again confirmation from patient as she does not know. Otherwise she states she walks at least 20 minutes without any issues and without any anginal complaints at baseline. No known coronary artery disease. Review of Systems Review of Systems: Yes all other systems are reviewed and are negative Cardiovascular: Cardiovascular: Reports as per HPI, Reports no additional cardiovascular complaints, Denies acrocyanosis, Denies cool extremities, Denies painful fingertips, Denies chest pain, Denies chest pain at rest, Denies diaphoresis, Denies syncope, Denies irregular heart rhythm, Denies claudication, Denies leg edema, Denies lightheadedness, Denies palpitations and Denies dyspnea Respiratory: Respiratory: Denies dyspnea Neurologic: Denies syncope Endocrine: Endocrine: Denies palpitations [facility] Past Medical History Medical History Asthma Heart disease Family History Family History Mother No problems noted. Pertinent family history: Patient does not know about father Social History Social History Alcohol intake: current Alcohol intake frequency: holidays/special occasions only Alcohol type: beer Patient Tobacco Use Status: Never used Tobacco Advance Directives Date on File: 07/14/21 service: No Current occupational status: retired Meds Allergies Allergy/AdvReac Type Severity Reaction Status Date / Time No Known Allergies Allergy Verified 07/13/21 12:26 Active Medications: Current Medications Albuterol/Ipratropium (Albuterol/Iprat 2.5/0.5mg 3 Ml Ampul.Neb) 3 ml INHALE Q3H PRN PRN Reason: Shortness of Breath Albuterol/Ipratropium (Albuterol/Iprat 2.5/0.5mg 3 Ml Ampul.Neb) 3 ml INHALE RQ4H [facility] Last Admin: 07/15/21 07:42 Dose: Not Given Documented by: Aspirin (Aspirin Enteric Coated 81 Mg Tablet.) 81 mg PO DAILY [facility] Last Admin: 07/15/21 09:13 Dose: 81 mg Documented by: Carvedilol (Carvedilol 3.125 Mg Tablet) 3.125 mg PO BID [facility]; Protocol Last Admin: 07/15/21 09:13 Dose: 3.125 mg Documented by: Guaifenesin (Guaifenesin 100 Mg/5 Ml Liquid) 5 ml PO Q6H [facility] Last Admin: 07/15/21 06:01 Dose: 5 ml Documented by: Loratadine (Loratadine 10 Mg Tablet) 10 mg PO DAILY [facility] Last Admin: 07/15/21 09:13 Dose: 10 mg Documented by: Pharmacy Consult (Consult Rx Perform Med Rec) 1 each MISCELLANE ONCE PRN PRN Reason: Consult order Prednisone (Prednisone 20 Mg Tablet) 40 mg PO DAILY [facility] Last Admin: 07/15/21 09:14 Dose: 40 mg Documented by: Sodium Chloride (0.9 % Sodium Chloride Flush 3 Ml Syringe) 3 ml IVFLUSH QSHIFT [facility] Last Admin: 07/15/21 09:14 Dose: 3 ml Documented by: Home Medications Medication Instructions Recorded Confirmed Last Taken Type carvedilol 3.125 mg tablet 1 tab PO BID 07/13/21 07/13/21 Unknown History ipratropium 20 mcg-albuterol 100 1 puff INHALATION QID 07/13/21 07/13/21 Unknown History mcg/actuation mist for inhalation (Combivent Respimat) Physical Exam Vital Signs: Vital Signs: Last Vital Signs Temp 97.6 F 07/15/21 07:31 Pulse 60 07/15/21 09:13 Resp 18 07/15/21 07:31 BP 140/70 H 07/15/21 09:13 Pulse Ox 98 07/15/21 07:31 Oxygen Flow Rate 2 07/13/21 12:26 BMI result Body Mass Index 23.3 Const: General: cooperative and no acute distress HENMT: Other: Unremarkable Neck: Neck: Yes normal visual inspection Chest: Chest palpation & inspection: normal inspection of the chest Resp: Auscultation: clear to auscultation bilaterally, no crackles and no wheezes Cardio: Jugular venous distension: no JVD Palpation: normal PMI Heart sounds: S1 normal heart sound present, S2 normal heart sound present, no gallops, Murmur heart sound present (1/6 BENJAMÍN aortic area) and no rubs GI: Palpation (GI): Soft to palpation Back/Spine/Pelvis: Other: unremarkable Skin: General skin exam: no rashes or lesions noted Neuro: Cranial nerves: Yes Other cranial nerve findings present Extrem: General: Yes no clubbing, cyanosis or edema Psych: Mental Status: other Objective Labs and Meds Result diagrams: 07/13/21 13:17 07/13/21 13:17 ECG Interpretation: EKG with sinus rhythm at 78/Min and nonspecific ST-T changes. Assessment and Plan (1) NSTEMI (non-ST elevated myocardial infarction): Status: Acute (2) Respiratory syncytial virus (RSV): Status: Acute (3) Asthma with exacerbation: Status: Acute (4) Hypoxia: Status: Acute Echocardiogram with low-normal LVEF at 53%. There is basal inferior/mid inferior hypokinesis. Mild diastolic dysfunction with increased filling pressures and mild mitral regurgitation. Most likely demand related slight troponin leak and very small NSTEMI. Clinically, she has no symptoms whatsoever. No need for any heparin drip. She can be treated with aspirin and statins. It seems that she is already on beta-blockers at baseline which might be for PVCs IVC on telemetry as patient states that she has an irregular heartbeat. Otherwise, as she already has a seismograph operator helper in [place], may follow-up there and consider outpatient stress testing. Procedures Date of Service Date of Service: 07/15/21
[2021-07-15 10:51] LABS: Cholesterol 169 mg/dL; HDL Cholesterol 54 mg/dL; LDL Cholesterol Calculated 97 mg/dl; Triglycerides 91 mg/dL
--- NOTE | 2021-07-15 11:03 | MHC.CM.PN ---
Patient has been medically cleared for dc to home today, no services.
[2021-07-15 11:26] VITALS: BP 129/67; PULSE 69; RESP 18; TEMP 36.4; O2SAT 95
[2021-07-15] MEDS: Amoxicillin/Potassium Clav 875 MG TABLET PO (13:16)
== END 2021-07-15 13:35 | disposition home or self-care (01) ==
LOC: HO.ED 18:39 → HO.EDOVER 20:32 → HO.IMC 07-14 15:25
PROVIDERS: Admitting Provider Internal Medicine; Emergency Provider Emergency Medicine; PCP Pediatrics; Visit Provider Internal Medicine
DX: J45.901 Unspecified asthma with (acute) exacerbation (principal); B97.4 Respiratory syncytial virus as the cause of diseases classified elsewhere; R09.02 Hypoxemia; H66.90 Otitis media, unspecified, unspecified ear; I21.4 Non-ST elevation (NSTEMI) myocardial infarction; M62.81 Muscle weakness (generalized); Q24.9 Congenital malformation of heart, unspecified; Z20.822 Contact with and (suspected) exposure to COVID-19; Z79.899 Other long term (current) drug therapy
CPT/HCPCS: 0241U; 36415; 71045; 80048; 80061; 80076; 83690; 83880; 84145; 84484; 85025; 93005; 93306; 94640; 94644; 96365; 96366; 96375; 96376; 99205; 99219; 99225; 99285; J0696; J2920; J2930

== ENCOUNTER 2022-06-08 18:11 | Emergency (ER) | payer MEDICARE, SELFPAY ==
--- NOTE | 2022-06-08 | ECG_ITS ---
Test Reason : chest pain Blood Pressure : / mmHG Vent. Rate : 067 BPM Atrial Rate : 067 BPM P-R Int : 168 ms QRS Dur : 086 ms QT Int : 396 ms P-R-T Axes : 012 -11 028 degrees QTc Int : 418 ms Normal sinus rhythm Nonspecific ST and T wave abnormality Abnormal ECG When compared with ECG of 14-JUL-2021 10:18, No significant change was found Referred By: Generic ED Physician Electronically Signed By:MARLENY RIBERA MD
--- NOTE | ~2022-06-08 | CT_ITS ---
EXAMINATION: CT ANGIOGRAM HEAD CT ANGIOGRAM NECK CLINICAL INFORMATION: Reason for Exam left arm numbness COMPARISON: None. TECHNIQUE: Initial noncontrast aids nurse imaging of the head and neck was performed. Noncontrast head CT was also performed. Test bolus sequences followed by intravenous administration 70 mL of Omnipaque 350. Helical imaging was performed in the axial plane from the aortic arch to the skull vertex. Delayed postcontrast imaging of the head was also performed. The data was processed at the dental technologist's workstation for generation of MIP sequences. Angled MIPs and volume rendered reformatted images were also generated at an offline 3D workstation. Stenoses are assessed in accordance with NASCET criteria unless otherwise indicated. DLP: 1969 mGy-cm This CT examination was performed using dose optimization techniques as appropriate, variously including the following: *Automated exposure control. *Adjustment of mA and/or kV according to patient size (this includes techniques or standardized protocols for targeted exams where dose is matched to indication/reason for exam; i.e. extremities or head). *Use of iterative reconstruction technique. FINDINGS: CT Head: There is no evidence of acute intracranial hemorrhage or edematous territorial infarction. There is no abnormal attenuation within the brain parenchyma. Chappell-white matter differentiation is preserved. The ventricles are normal in size and configuration. No evidence for obstructive hydrocephalus. No abnormal mass effect or midline shift. No extra-axial fluid collections. No pathologic intra-axial enhancement or regional oligemia. No acute soft tissue or osseous abnormalities. Nasal sinuses are clear. Sclerotic appearance of the right mastoid air cells which are partially opacified CT Neck: The thyroid gland and remaining cervical soft tissues are within normal limits. Mild degenerative changes of the cervical spine. CT Upper Chest: The visualized lung apices and upper mediastinum are within normal limits. Neck CTA: Aortic Arch: Normal contour and caliber. Classic 3 vessel branching pattern of the aortic arch. Great Vessel Origins: No significant stenosis of the branch origins. Right Common Carotid Artery: No focal stenosis or occlusion. Cervical Right Internal Carotid Artery: Mild calcific atherosclerotic disease of the carotid bulb and proximal internal carotid artery without flow-limiting stenosis. Left Common Carotid Artery: No focal stenosis or occlusion. Cervical Left Internal Carotid Artery: Normal opacification without focal stenosis or occlusion. Cervical Right Vertebral Artery: No focal stenosis or occlusion. Cervical Left Vertebral Artery: No focal stenosis or occlusion. Brain CTA: Intracranial Internal Carotid Arteries: No focal stenosis or occlusion. Right Anterior Cerebral Artery: Normal A1 segment. Normal opacification of the distal [place] segments. Left Anterior Cerebral Artery: Normal A1 segment. Normal opacification of the distal [place] segments. Anterior Communicating Artery: Normal. Right Middle Cerebral Artery: Normal M1 segment of the MCA without focal stenosis or occlusion. Normal arborization of the distal segments. Left Middle Cerebral Artery: Normal M1 segment of the MCA without focal stenosis or occlusion. Normal arborization of the distal segments. Right Vertebral Artery: Normal V4 segment. Left Vertebral Artery: Normal V4 segment. Basilar Artery: Normal without focal stenosis or occlusion. Normal appearance of the proximal superior cerebellar arteries. Right Posterior Cerebral Artery: configuration Normal opacification of the distal DESIGN MANAGER segments. Left Posterior Cerebral Artery: Normal P1 segment. Normal opacification of the distal DESIGN MANAGER segments. Normal opacification of the superior sagittal, straight, transverse, and sigmoid sinuses. CT/CT angio head neck IMPRESSION: 1. No acute intracranial abnormality including hemorrhage, mass effect, hydrocephalus, or acute territorial edematous infarction. 2. No arterial high grade stenosis or large vessel occlusion in the head or neck.
--- NOTE | ~2022-06-08 | XR_ITS ---
EXAMINATION: XR CHEST CLINICAL INFORMATION: Chest pain COMPARISON: 07/13/2021 TECHNIQUE: Frontal view of the chest was obtained. FINDINGS: Large hiatus hernia. No significant abnormality is noted involving the heart, lungs, mediastinum, bony thorax or soft tissues. XR/XR chest 1V IMPRESSION: No active chest disease. Large hiatus hernia.
[2022-06-08 18:20] VITALS: BP 149/88; PULSE 68; RESP 20; TEMP 36; O2SAT 98; BMI 26.6
--- NOTE | 2022-06-08 19:54 | ED_ITS ---
HPI - Chest Pain General Chief Complaint: Chest Pain Stated Complaint: pain in L arm/diff. breathing Time Seen by Provider: 06/08/22 19:54 Source: patient Mode of arrival: ambulatory Limitations: no limitations History of Present Illness HPI narrative: 71-year-old female presents with chest pain and left-sided arm numbness and tingling that started around 4 or 17:00 while she was at the bar playing [place]. Patient states the symptoms have resolved, but has had prior episodes in the past over the past several months. She does have a history of UT, and asthma. MD complaint: chest pain and other (Left arm numbness) Pertinent past history: prior UT and asthma Onset (ago): hour(s) (Several hours prior to arrival) Timing of current episode: episodic Prior episodes: Yes Pain location: left chest Pain radiation: left arm Severity: mild (Now resolved) Quality: aching Risk Factors Thoracic aortic dissection risk factors: none Related Data On Oral Contraceptives: No Home Medications Medication Instructions Recorded Confirmed carvedilol 3.125 mg tablet 1 tab PO BID 07/13/21 07/13/21 ipratropium 20 mcg-albuterol 100 1 puff inhalation QID 07/13/21 07/13/21 mcg/actuation mist for inhalation (Combivent Respimat) Previous Rx's Medication Instructions Recorded albuterol sulfate 90 mcg/actuation 1 inh inhalation QID PRN shortness 07/13/21 aerosol inhaler (ProAir HFA) of breath or wheezing #8.5 grams amoxicillin 875 mg-potassium 1 tab PO BID #10 tabs 07/15/21 clavulanate 125 mg tablet (Augmentin) aspirin 81 mg tablet,delayed 81 mg PO DAILY #30 tabs 07/15/21 release atorvastatin 20 mg tablet 20 mg PO BEDTIME #30 tabs 07/15/21 guaifenesin 100 mg/5 mL oral liquid 5 ml PO Q6H #80 mL 07/15/21 prednisone 20 mg tablet 40 mg PO DAILY #4 tabs 07/15/21 Allergies Allergy/AdvReac Type Severity Reaction Status Date / Time No Known Allergies Allergy Verified 07/13/21 12:26 Review of Systems Review of Systems: Constitutional: No Fever, No Chills ENT/Mouth: No Ear Pain, No Hoarseness, No sore throat Eyes: No Eye Pain, No Swelling, No Redness, No Foreign Body Cardiovascular: Positive left-sided Chest Pain, No SOB Respiratory: No Cough, No Dyspnea Gastrointestinal: No Nausea, No Vomiting, No Diarrhea, No abdominal Pain Genitourinary: No Dysuria, No Hematuria Musculoskeletal: positive joint pain, No Myalgias, No Joint Swelling Skin: No Skin lacerations, No rash Neuro: No Weakness, positive left arm Numbness, positive left arm Paresthesias, No Loss of Consciousness, No Dizziness, No Headache Psych: No Anxiety/Panic, No Depression Heme/Lymph: no easy bruising, no Lymphadenopathy Endocrine: No Polyuria, No Polydipsia Yes all other systems are reviewed and are negative [facility] Past Medical History Attestation statement: The following information was validated with the patient. Source: old records reviewed Medical History Asthma Heart disease Family History Family History Mother No problems noted. Social History Social History Alcohol intake: current Alcohol intake frequency: holidays/special occasions only Alcohol type: beer Patient Tobacco Use Status: Never used Tobacco Advance Directives: Yes Advance Directives on File: Yes Advance Directives Date on File: 07/14/21 service: No Current occupational status: retired Physical Exam Vital Signs: Vital Signs: Last Vital Signs Temp 97.7 F 06/08/22 22:54 Pulse 75 06/08/22 22:54 Resp 12 06/08/22 22:54 BP 146/85 H 06/08/22 22:54 Pulse Ox 95 06/08/22 22:54 O2 Del Method 06/08/22 22:54 BMI result Body Mass Index 26.6 Appearance: Alert. Oriented X3. No acute distress. Eyes: Pupils equal, round and reactive to light. ENT: Pharynx normal. Neck: Normal inspection. Neck supple. CVS: Normal heart rate and rhythm. Pulses normal. Respiratory: No respiratory distress. Breath sounds normal. Abdomen: Soft and nontender. Skin: Skin warm and dry. Normal skin color. Normal skin turgor. Extremities: No lower extremity edema. Gait well-balanced well coordinated. Neuro: No motor deficit. No sensory deficit. Cranial nerves 2-12 intact. NIH Stroke Scale Internal: Initial- Upon Arrival Level of Consciousness: Alert Level of Consciousness Questions: Answers both questions correctly Level of Consciousness Commands: Performs both tasks correctly Best Gaze: Normal Visual: No visual loss Facial Palsy: Normal Motor Arm (Right): No drift Motor Arm (Left): No drift Motor Leg (Right): No drift Motor Leg (Left): No drift Limb Ataxia: Absent Sensory: Normal Best Language: No aphasia Dysarthia: Normal Extinction and Inattention: No abnormality Score: 0 Course Course Course Narrative: 71-year-old female presents with left-sided arm numbness and weakness and left- sided chest pain that has resolved. Patient reports that this occurred at around 4 or 17:00 while she was playing he know at the bar. She has had a past medical history of an UT, and reports that she has had intermittent left-sided arm numbness and tingling for the past several months. Patient's physical exam is unremarkable, NIH stroke scale is 0, has full range of motion to all extremities, has equal grasps with brisk capillary refill and equal pulses. Cranial nerves 2-12 intact, even unlabored respirations, alert oriented x4, vital signs are stable and within normal limits. Will rule out ACS, and CVA. Lab values are unremarkable, EKG is normal sinus. Low likelihood of ACS at this time. Urinalysis is negative. 22:22 CTA head neck negative for acute findings requiring emergent friend drip. Plan of care to discharge home. Patient verbalized understanding of and agrees plan of care discharge home. Verbalized understanding of signs symptoms indicating need for emergent intervention. MDM - Chest Pain Differential Diagnosis Differential diagnosis: Likely fracture of rib, pneumothorax, unstable angina pectoris, atypical chest pain, st elevation myocardial infarction and costochondritis Differential diagnosis: CVA Medical Records Data Attestation: I reviewed the patient's medical records. Lab Data Attestation: I reviewed the patient's lab results. Result diagrams: 06/08/22 20:32 06/08/22 20:32 Labs: Lab Results 06/08/22 06/08/22 06/08/22 Range/Units 20:32 20:32 20:32 WBC 5.0 (4.8-10.8) X10*3/uL RBC 4.67 D (4.20-5.50) X10*6/uL Hgb 14.7 D (12.0-16.0) g/dl Hct 44.0 D (37.0-47.0) % MCV 94.2 (80.0-98.0) fL MCH 31.5 (27.0-33.0) pg MCHC 33.4 (31.0-35.0) g/dl RDW 12.9 (11.0-16.0) % Plt Count 153 L (160-400) X10*3/uL MPV 10.1 (9.4-12.3) fL Immature Gran % (Auto) 0.2 (0.0-0.4) % Neut % (Auto) 52.3 (45-73) % Lymph % (Auto) 34.3 (20-40) % [place] % (Auto) 8.2 (2-11) % Eos % (Auto) 3.4 (0-4) % Baso % (Auto) 1.6 (0-2) % Lymph # (Auto) 1.7 (1.2-4.9) X10*3/uL [place] # (Auto) 0.4 (0.1-1.2) X10*3/uL Eos # (Auto) 0.2 (0.0-0.4) X10*3/uL Baso # (Auto) 0.1 (0.0-0.2) X10*3/uL Abs Immat Gran (auto) 0.01 (0.00-0.03) X10*3/uL Absolute Neuts (auto) 2.6 (2.0-8.3) x10*3/uL Absolute Nucleated RBC 0.000 (0.0-0.012) X10*3/uL Nucleated RBC % (auto) 0.0 (0.0-0.2) /100WBC Sodium 139 (135-145) mmol/L Potassium 4.2 (3.3-5.1) mmol/L Chloride 104 (96-108) mmol/L Carbon Dioxide 21 L (22-29) mmol/L Anion Gap 18 (12-20) BUN 10 (9-16) mg/dL Creatinine 0.76 (0.5-1.4) mg/dL Estim Creat Clear Calc 66.7 Estimated GFR > 60 Random Glucose 97 (60-115) mg/dL Calcium 9.4 D (8.4-10.2) mg/dL Magnesium 2.1 (1.6-2.6) mg/dL Total Bilirubin 0.6 (0.0-1.0) mg/dL Direct Bilirubin 0.2 (0.0-0.5) mg/dL AST 30 D (5-31) U/L ALT 18 (0-31) U/L Alkaline Phosphatase 69 D (39-117) U/L Troponin I High Sens 6.1 D (<3.5-17.0) ng/L Total Protein 7.4 D (6.5-8.0) g/dL Albumin 4.5 D (3.5-5.0) g/dL Lipase 22 (8-78) U/L Urine Color Urine Appearance Urine pH (5.0-9.0) Ur Specific [place] (1.005-1.025) Urine Protein (Neg-Trace) mg/dL Urine Glucose (UA) (Negative) mg/dL Urine Ketones (Negative) mg/dL Urine Blood (Negative) Urine Nitrite (Negative) Ur Leukocyte Esterase (Negative) 06/08/22 Range/Units 22:36 WBC (4.8-10.8) X10*3/uL RBC (4.20-5.50) X10*6/uL Hgb (12.0-16.0) g/dl Hct (37.0-47.0) % MCV (80.0-98.0) fL MCH (27.0-33.0) pg MCHC (31.0-35.0) g/dl RDW (11.0-16.0) % Plt Count (160-400) X10*3/uL MPV (9.4-12.3) fL Immature Gran % (Auto) (0.0-0.4) % Neut % (Auto) (45-73) % Lymph % (Auto) (20-40) % [place] % (Auto) (2-11) % Eos % (Auto) (0-4) % Baso % (Auto) (0-2) % Lymph # (Auto) (1.2-4.9) X10*3/uL [place] # (Auto) (0.1-1.2) X10*3/uL Eos # (Auto) (0.0-0.4) X10*3/uL Baso # (Auto) (0.0-0.2) X10*3/uL Abs Immat Gran (auto) (0.00-0.03) X10*3/uL Absolute Neuts (auto) (2.0-8.3) x10*3/uL Absolute Nucleated RBC (0.0-0.012) X10*3/uL Nucleated RBC % (auto) (0.0-0.2) /100WBC Sodium (135-145) mmol/L Potassium (3.3-5.1) mmol/L Chloride (96-108) mmol/L Carbon Dioxide (22-29) mmol/L Anion Gap (12-20) BUN (9-16) mg/dL Creatinine (0.5-1.4) mg/dL Estim Creat Clear Calc Estimated GFR Random Glucose (60-115) mg/dL Calcium (8.4-10.2) mg/dL Magnesium (1.6-2.6) mg/dL Total Bilirubin (0.0-1.0) mg/dL Direct Bilirubin (0.0-0.5) mg/dL AST (5-31) U/L ALT (0-31) U/L Alkaline Phosphatase (39-117) U/L Troponin I High Sens (<3.5-17.0) ng/L Total Protein (6.5-8.0) g/dL Albumin (3.5-5.0) g/dL Lipase (8-78) U/L Urine Color Yellow Urine Appearance Clear Urine pH 5.5 (5.0-9.0) Ur Specific [place] 1.010 (1.005-1.025) Urine Protein Negative (Neg-Trace) mg/dL Urine Glucose (UA) Negative (Negative) mg/dL Urine Ketones Negative (Negative) mg/dL Urine Blood Negative (Negative) Urine Nitrite Negative (Negative) Ur Leukocyte Esterase Negative (Negative) Imaging Data CTA head neck: Attestation: I personally reviewed and interpreted this imaging study as follows: Radiologist's impression: CT Head: There is no evidence of acute intracranial hemorrhage or edematous territorial infarction. There is no abnormal attenuation within the brain parenchyma. Chappell-white matter differentiation is preserved. The ventricles are normal in size and configuration. No evidence for obstructive hydrocephalus. No abnormal mass effect or midline shift. No extra-axial fluid collections. No pathologic intra-axial enhancement or regional oligemia. No acute soft tissue or osseous abnormalities. Nasal sinuses are clear. Sclerotic appearance of the right mastoid air cells which are partially opacified CT Neck: The thyroid gland and remaining cervical soft tissues are within normal limits. Mild degenerative changes of the cervical spine. CT Upper Chest: The visualized lung apices and upper mediastinum are within normal limits. Neck CTA: Aortic Arch: Normal contour and caliber. Classic 3 vessel branching pattern of the aortic arch. Great Vessel Origins: No significant stenosis of the branch origins. Right Common Carotid Artery: No focal stenosis or occlusion. Cervical Right Internal Carotid Artery: Mild calcific atherosclerotic disease of the carotid bulb and proximal internal carotid artery without flow-limiting stenosis. Left Common Carotid Artery: No focal stenosis or occlusion. Cervical Left Internal Carotid Artery: Normal opacification without focal stenosis or occlusion. Cervical Right Vertebral Artery: No focal stenosis or occlusion. Cervical Left Vertebral Artery: No focal stenosis or occlusion. Brain CTA: Intracranial Internal Carotid Arteries: No focal stenosis or occlusion. Right Anterior Cerebral Artery: Normal A1 segment. Normal opacification of the distal [place] segments. Left Anterior Cerebral Artery: Normal A1 segment. Normal opacification of the distal [place] segments. Anterior Communicating Artery: Normal. Right Middle Cerebral Artery: Normal M1 segment of the MCA without focal stenosis or occlusion. Normal arborization of the distal segments. Left Middle Cerebral Artery: Normal M1 segment of the MCA without focal stenosis or occlusion. Normal arborization of the distal segments. Right Vertebral Artery: Normal V4 segment. Left Vertebral Artery: Normal V4 segment. Basilar Artery: Normal without focal stenosis or occlusion. Normal appearance of the proximal superior cerebellar arteries. Right Posterior Cerebral Artery: configuration Normal opacification of the distal PRODUCT SAFETY PROFESSIONAL segments. Left Posterior Cerebral Artery: Normal P1 segment. Normal opacification of the distal PRODUCT SAFETY PROFESSIONAL segments. Normal opacification of the superior sagittal, straight, transverse, and sigmoid sinuses. CT/CT angio head neck IMPRESSION: ? 1.? No acute intracranial abnormality including hemorrhage, mass effect, hydrocephalus, or acute territorial edematous infarction. ? 2.? No arterial high grade stenosis or large vessel occlusion in the head or neck. ? Chest x-ray: Attestation: I personally reviewed and interpreted this imaging study as follows: Radiologist's impression: EXAMINATION: XR CHEST CLINICAL INFORMATION: Chest pain COMPARISON: 07/13/2021 TECHNIQUE: Frontal view of the chest was obtained. FINDINGS: Large hiatus hernia. No significant abnormality is noted involving the heart, lungs, mediastinum, bony thorax or soft tissues. XR/XR chest 1V IMPRESSION: No active chest disease. Large hiatus hernia. ECG Data ECG #1: Attestation: I personally reviewed and interpreted this ECG as follows: ECG interpretation date: 06/08/22 ECG interpretation time: 18:28 Prior ECG tracings: available for review Interpretation: Vent. rate 67 BPM VT interval 168 ms QRS duration 86 ms QT/QTc 396/418 ms P-R-T axes 12 28 Normal sinus rhythm Nonspecific ST and T wave abnormality Abnormal ECG When compared with ECG of 14-JUL-2021 10:18, No significant change was found Scores Heart Score History: -1- moderately suspicious ECG: -0- normal Age: -2- > or = 65 Risk factory: -1- 1 or 2 risk factors Troponin: -0- < or = normal limit Score: 4 Risk: 16.6% Discharge Plan Discharge Clinical Impression: Atypical chest pain, Arm numbness left Patient Disposition: Home, Self-Care Instructions: Chest Pain (ED), Paresthesia (ED), Noncardiac Chest Pain (ED) Additional Instructions: You were evaluated for chest pain with left-sided arm numbness and tingling. Your CT angio of head and neck are negative for acute findings requiring emergent intervention. Your EKG is normal sinus. Your cardiac enzymes are negative Please follow-up with primary care physician. Continue to take all prescribed medications. Thank you for choosing this emergency department for evaluation. Please follow-up with primary care physician as needed. Return to the emergency department for any new, concerning, or worsening symptoms. Prescriptions: No Action albuterol sulfate [ProAir HFA] 90 mcg/actuation HFA aerosol inhaler 1 inh inhalation QID PRN (Reason: shortness of breath or wheezing) Qty: 8.5 0RF carvedilol 3.125 mg tablet 1 tab PO BID Combivent Respimat 20-100 mcg/actuation mist 1 puff inhalation QID prednisone 20 mg Tablet 40 mg PO DAILY Qty: 4 0RF guaifenesin 100 mg/5 mL Liquid 5 ml PO Q6H Qty: 80 0RF amoxicillin-pot clavulanate [Augmentin] 875-125 mg tablet 1 tab PO BID Qty: 10 0RF aspirin 81 mg Tablet,Delayed Release (Dr/Ec) 81 mg PO DAILY Qty: 30 0RF atorvastatin 20 mg tablet 20 mg PO BEDTIME Qty: 30 0RF Interventions: ED Discharge Assessment Last Done: 06/08/22 23:00 Discharge Date/Time: 06/08/22 23:02
[2022-06-08 20:28] VITALS: BP 142/93; PULSE 69; RESP 18; TEMP 36.6; O2SAT 96
[2022-06-08] MEDS: Aspirin 81 MG TAB.CHEW 324 MG PO (20:44)
[2022-06-08 20:47] LABS: Basophils Absolute Auto 0.1 X10*3/uL (0.0-0.2); Basophils Percent Auto 1.6 % (0-2); Eosinophils Absolute Auto 0.2 X10*3/uL (0.0-0.4); Eosinophils Percent Auto 3.4 % (0-4); Hemoglobin 14.7 g/dl (12.0-16.0); Imm Gran Abs Auto 0.01 X10*3/uL (0.00-0.03); Imm Gran Pct Auto 0.2 % (0.0-0.4); Lymphocytes Absolute Auto 1.7 X10*3/uL (1.2-4.9); Lymphocytes Percent Auto 34.3 % (20-40); MANUAL DIFF FLAG NO; Mean Corpuscular HGB Conc 33.4 g/dl (31.0-35.0); Mean Corpuscular Hemoglobin 31.5 pg (27.0-33.0); Mean Corpuscular Volume 94.2 fL (80.0-98.0); Mean Platelet Volume 10.1 fL (9.4-12.3); Monocytes Absolute Auto 0.4 X10*3/uL (0.1-1.2); Monocytes Percent Auto 8.2 % (2-11); Neutrophils Absolute Auto 2.6 x10*3/uL (2.0-8.3); Neutrophils Percent Auto 52.3 % (45-73); Platelet Count 153 X10*3/uL (160-400); Red Blood Count 4.67 X10*6/uL (4.20-5.50); Red Cell Distribution Width 12.9 % (11.0-16.0)
[2022-06-08 21:06] LABS: Alanine Aminotransferase 18 U/L (0-31); Albumin Level 4.5 g/dL (3.5-5.0); Alkaline Phosphatase 69 U/L (39-117); Anion Gap 18 (12-20); Aspartate Amino Transferase 30 U/L (5-31); Bilirubin Direct 0.2 mg/dL (0.0-0.5); Bilirubin Total 0.6 mg/dL (0.0-1.0); Blood Urea Nitrogen 10 mg/dL (9-16); Calcium 9.4 mg/dL (8.4-10.2); Carbon Dioxide 21 mmol/L (22-29); Chloride 104 mmol/L (96-108); Creatinine Clr Calc Pharmacy 66.7; Estimated Glomerular Filt Rate > 60; Glucose Random 97 mg/dL (60-115); Lipase 22 U/L (8-78); Magnesium 2.1 mg/dL (1.6-2.6); Potassium 4.2 mmol/L (3.3-5.1); Sodium 139 mmol/L (135-145); Total Protein 7.4 g/dL (6.5-8.0)
[2022-06-08 21:10] LABS: Troponin-I High Sensitivity 6.1 ng/L (<3.5-17.0)
[2022-06-08] MEDS: iohexoL 350 MG/ML 100 ML INFUS..BTL IV (21:29)
[2022-06-08 22:00] VITALS: BP 148/79; PULSE 70; RESP 19; TEMP 36.5; O2SAT 95
[2022-06-08 22:46] LABS: Appearance Urine Clear; Color Urine Yellow; Glucose Urine UA Negative (Negative); Leukocyte Esterase Urine Negative (Negative); Nitrite Urine Negative (Negative); PH 5.5 (5.0-9.0); Urine Blood Negative (Negative); Urine Ketones Negative (Negative); Urine Protein Negative (Neg-Trace)
[2022-06-08 22:54] VITALS: BP 146/85; PULSE 75; RESP 12; TEMP 36.5; O2SAT 95
== END 2022-06-08 23:02 | disposition home or self-care (01) ==
PROVIDERS: Nurse Practitioner Family; Emergency Provider Internal Medicine
DX: R07.89 Other chest pain (principal); R51.9 Headache, unspecified; R06.02 Shortness of breath; I25.2 Old myocardial infarction; M79.602 Pain in left arm; R20.0 Anesthesia of skin; Z79.899 Other long term (current) drug therapy
CPT/HCPCS: 36415; 70496; 70498; 71045; 80048; 80076; 81003; 83690; 83735; 84484; 85025; 93005; 99284; Q9967